=== PATIENT | female | born 1970 | race Caucasian/White ===

== ENCOUNTER → 2017-09-18 | Outpatient (CLI) | payer OTHER | LOC: MAMMO 13:41 | DX: N63.20 Unspecified lump in the left breast, unspecified quadrant (principal); N64.4 Mastodynia ==

== ENCOUNTER → 2019-03-23 | Outpatient (CLI) | payer OTHER | LOC: MAMMO 09:29 | DX: Z12.31 Encounter for screening mammogram for malignant neoplasm of breast (principal) ==

== ENCOUNTER → 2020-04-03 | Outpatient (CLI) | payer OTHER | LOC: LAB 12:16 | DX: Z20.828 Contact with and (suspected) exposure to other viral communicable diseases (principal) ==

== ENCOUNTER → 2020-04-28 | Outpatient (CLI) | payer OTHER ==
[2020-04-28 11:10] LABS: HEMATOCRIT 45.4 % (37.0-47.0); HEMOGLOBIN 15.1 g/dL (12.5-16.0); MEAN PLATELET VOLUME 9.9 fl (7.4-10.4); RED BLOOD COUNT 5.28 M/mm3 (4.10-5.30); RED CELL DISTRIBUTION WIDTH 13.5 % (11.5-14.5); WHITE BLOOD COUNT 5.8 K/mm3 (4.8-10.8)
[2020-04-28 11:24] LABS: ALBUMIN 4.4 g/dL (3.5-5.0)
[2020-04-28 11:25] LABS: POTASSIUM 4.2 mmol/L (3.5-5.1)
[2020-04-28 11:26] LABS: CALCIUM 9.1 mg/dL (8.3-10.5)
[2020-04-28 11:27] LABS: TOTAL PROTEIN 7.4 g/dL (6.4-8.3)
[2020-04-28 11:29] LABS: TOTAL BILIRUBIN 0.3 mg/dL (0.2-1.2)
== END ==
LOC: RAD 10:52
PROVIDERS: Family Medicine
DX: E04.1 Nontoxic single thyroid nodule (principal); R63.5 Abnormal weight gain; M54.2 Cervicalgia

== ENCOUNTER → 2020-05-22 | Outpatient (CLI) | payer OTHER | LOC: VAS 15:23 | DX: I08.0 Rheumatic disorders of both mitral and aortic valves (principal); I77.810 Thoracic aortic ectasia; Z82.49 Family history of ischemic heart disease and other diseases of the circulatory system ==

== ENCOUNTER → 2020-07-03 | Outpatient (CLI) | payer OTHER ==
[2020-07-03 11:19] LABS: EOS # 0.2 (0.04-0.40); EOS % 1.9 % (1.0-5.0); HEMATOCRIT 43.3 % (37.0-47.0); HEMOGLOBIN 14.5 g/dL (12.5-16.0); LYMPH# 1.9 (1.50-4.00); MEAN CELL VOLUME 86 fl (78-100); MEAN CORPUSCULAR HEMOGLOBIN 29 pg (27-31); MEAN CORPUSCULAR HGB CONC 34 g/dL (33-37); MEAN PLATELET VOLUME 10.3 fl (7.4-10.4); MONO # 0.5 (0.20-0.80); NEU # 5.1 (1.40-6.50); PLATELET COUNT 196 K/mm3 (130-400); RED BLOOD COUNT 5.03 M/mm3 (4.10-5.30); RED CELL DISTRIBUTION WIDTH 14.1 % (11.5-14.5); WHITE BLOOD COUNT 7.8 K/mm3 (4.8-10.8)
== END ==
LOC: LAB 10:35
PROVIDERS: Family Medicine
DX: K11.5 Sialolithiasis (principal); I71.2 Thoracic aortic aneurysm, without rupture; Q23.1 Congenital insufficiency of aortic valve; K13.70 Unspecified lesions of oral mucosa
CPT/HCPCS: Q9967

== ENCOUNTER → 2020-08-14 | Outpatient (CLI) | payer OTHER ==
[2020-08-14 12:05] LABS: EOS # 0.1 (0.04-0.40); EOS % 1.6 % (1.0-5.0); HEMATOCRIT 43.9 % (37.0-47.0); HEMOGLOBIN 14.6 g/dL (12.5-16.0); MEAN CELL VOLUME 86 fl (78-100); MEAN CORPUSCULAR HEMOGLOBIN 29 pg (27-31); MEAN CORPUSCULAR HGB CONC 33 g/dL (33-37); MEAN PLATELET VOLUME 9.8 fl (7.4-10.4); MONO # 0.4 (0.20-0.80); NEU # 3.6 (1.40-6.50); PLATELET COUNT 238 K/mm3 (130-400); RED BLOOD COUNT 5.11 M/mm3 (4.10-5.30); RED CELL DISTRIBUTION WIDTH 13.3 % (11.5-14.5); WHITE BLOOD COUNT 6.2 K/mm3 (4.8-10.8)
[2020-08-14 12:21] LABS: POTASSIUM 4.2 mmol/L (3.5-5.1)
[2020-08-14 12:22] LABS: CALCIUM 9.1 mg/dL (8.3-10.5)
== END ==
LOC: LAB 11:55
DX: Z01.810 Encounter for preprocedural cardiovascular examination (principal); I35.0 Nonrheumatic aortic (valve) stenosis

== ENCOUNTER 2020-11-01 09:45 | Inpatient (IN) | payer OTHER ==
[~2020-11-01] VITALS: Ht 170.2 cm; Wt 62.8 kg
[2020-11-01] MEDS ORDERED: WARFARIN SODIUM3 MG PO ×2 (11:31)
[2020-11-01] MEDS ORDERED: AMIODARONE HCL400 MG PO (11:31)
[2020-11-01] MEDS ORDERED: GOOD NEIGHBOR500 M2 PO (11:31)
[2020-11-01] MEDS ORDERED: ASPIRIN E.C. 8181 MG PO (11:32)
[2020-11-01] MEDS ORDERED: ROXICODONE5 M1 PO (11:32)
[2020-11-01 14:33] VITALS: BP 96/73
[2020-11-01 14:34] VITALS: BP 96/73
[2020-11-01 15:52] LABS: RED BLOOD COUNT 3.76 M/mm3 (4.10-5.30); WHITE BLOOD COUNT 10.8 K/mm3 (4.8-10.8)
[2020-11-01 15:53] LABS: HEMATOCRIT 32.9 % (37.0-47.0); HEMOGLOBIN 10.3 g/dL (12.5-16.0); MEAN PLATELET VOLUME 9.6 fl (7.4-10.4); RED CELL DISTRIBUTION WIDTH 13.2 % (11.5-14.5)
[2020-11-01 15:54] LABS: ALBUMIN 4.2 g/dL (3.5-5.0); CALCIUM 9.2 mg/dL (8.3-10.5); POTASSIUM 4.1 mmol/L (3.5-5.1); TOTAL BILIRUBIN 0.3 mg/dL (0.2-1.2); TOTAL PROTEIN 7.2 g/dL (6.4-8.3)
[2020-11-01 15:55] LABS: TROPONIN-I 0.1 ng/mL (<0.030)
[2020-11-01 16:04] VITALS: BP 96/73
[2020-11-01 17:47] VITALS: BP 110/69
[2020-11-01 22:00] VITALS: BP 105/73
[2020-11-02] VITALS (17 sets, daily range): BP systolic 105–116; BP diastolic 66–80
[2020-11-02 08:41] LABS: HEMATOCRIT 27.1 % (37.0-47.0); HEMOGLOBIN 8.4 g/dL (12.5-16.0); MEAN CELL VOLUME 89 fl (78-100); MEAN CORPUSCULAR HEMOGLOBIN 28 pg (27-31); MEAN CORPUSCULAR HGB CONC 31 g/dL (33-37); MEAN PLATELET VOLUME 9.6 fl (7.4-10.4); RED BLOOD COUNT 3.05 M/mm3 (4.10-5.30); RED CELL DISTRIBUTION WIDTH 13.2 % (11.5-14.5); WHITE BLOOD COUNT 12.3 K/mm3 (4.8-10.8)
[2020-11-02 08:57] LABS: POTASSIUM 4.6 mmol/L (3.5-5.1)
[2020-11-02 08:58] LABS: CALCIUM 9.3 mg/dL (8.3-10.5); PROTHROMBIN TIME 23.1 SECONDS (9.0-12.0)
[2020-11-02 09:04] LABS: PLATELET COUNT 560 K/mm3 (130-400)
[2020-11-02 09:11] LABS: TROPONIN-I 0.09 ng/mL (<0.030)
[2020-11-02 09:30] LABS: LYMPHOCYTE 13 % (20-51); MONOCYTE 6 % (3-10); NEUTROPHILS 80 % (42-75)
[2020-11-02 09:31] LABS: POLYCHROMASIA 1+
[2020-11-02 10:42] LABS: PROTHROMBIN TIME 25.8 SECONDS (9.0-12.0)
[2020-11-02 12:17] LABS: URINE APPEARANCE CLEAR; URINE BILIRUBIN NEGATIVE (NEGATIVE); URINE BLOOD NEGATIVE (NEGATIVE); URINE COLOR YELLOW; URINE GLUCOSE NEGATIVE (NEGATIVE); URINE KETONE NEGATIVE (NEGATIVE); URINE LEUKOCYTE ESTERASE NEGATIVE (NEGATIVE); URINE NITRATE NEGATIVE (NEGATIVE); URINE PROTEIN(semi-quant) TRACE mg/dL (NEGATIVE); URINE UROBILINOGEN NORMAL (NORMAL)
[2020-11-02 12:18] LABS: URINE MUCUS PRESENT (NOT PRESENT)
[2020-11-02 12:20] LABS: PROTHROMBIN TIME 101.9 SECONDS (9.0-12.0)
[2020-11-03] VITALS (9 sets, daily range): BP systolic 99–115; BP diastolic 64–78
[2020-11-03 08:54] LABS: HEMATOCRIT 26.3 % (37.0-47.0); HEMOGLOBIN 8.3 g/dL (12.5-16.0); MEAN CELL VOLUME 88 fl (78-100); MEAN CORPUSCULAR HEMOGLOBIN 28 pg (27-31); MEAN CORPUSCULAR HGB CONC 32 g/dL (33-37); MEAN PLATELET VOLUME 9.8 fl (7.4-10.4); RED BLOOD COUNT 2.99 M/mm3 (4.10-5.30); RED CELL DISTRIBUTION WIDTH 13.1 % (11.5-14.5); WHITE BLOOD COUNT 11.5 K/mm3 (4.8-10.8)
[2020-11-03 09:09] LABS: PLATELET COUNT 573 K/mm3 (130-400)
[2020-11-03 09:12] LABS: LYMPHOCYTE 20 % (20-51); MONOCYTE 5 % (3-10); NEUTROPHILS 75 % (42-75)
[2020-11-03 09:13] LABS: HYPOCHROMIA 1+; POLYCHROMASIA 1+
[2020-11-03 09:51] LABS: PROTHROMBIN TIME 71.3 SECONDS (9.0-12.0)
[2020-11-03 09:59] LABS: POTASSIUM 4.6 mmol/L (3.5-5.1)
[2020-11-03 10:02] LABS: TOTAL PROTEIN 6.9 g/dL (6.4-8.3)
[2020-11-03 10:03] LABS: TOTAL BILIRUBIN 0.4 mg/dL (0.2-1.2)
[2020-11-03 17:59] LABS: PROTHROMBIN TIME 34.7 SECONDS (9.0-12.0)
[2020-11-04 06:04] VITALS: BP 109/68
[2020-11-04 07:00] LABS: HEMATOCRIT 25.3 % (37.0-47.0); MEAN CELL VOLUME 88 fl (78-100); MEAN CORPUSCULAR HEMOGLOBIN 27 pg (27-31); MEAN CORPUSCULAR HGB CONC 31 g/dL (33-37); MEAN PLATELET VOLUME 10.1 fl (7.4-10.4); RED BLOOD COUNT 2.88 M/mm3 (4.10-5.30); RED CELL DISTRIBUTION WIDTH 13.4 % (11.5-14.5); WHITE BLOOD COUNT 14.5 K/mm3 (4.8-10.8)
[2020-11-04 08:01] LABS: HEMOGLOBIN 7.8 g/dL (12.5-16.0); PLATELET COUNT 527 K/mm3 (130-400)
[2020-11-04 08:03] LABS: PROTHROMBIN TIME 61.4 SECONDS (9.0-12.0)
[2020-11-04 08:04] LABS: LYMPHOCYTE 11 % (20-51); MONOCYTE 4 % (3-10); NEUTROPHILS 85 % (42-75)
[2020-11-04 08:11] LABS: POTASSIUM 4.5 mmol/L (3.5-5.1)
[2020-11-04 08:12] LABS: CALCIUM 8.9 mg/dL (8.3-10.5)
[2020-11-04 08:14] LABS: TOTAL PROTEIN 6.8 g/dL (6.4-8.3)
[2020-11-04 08:15] LABS: TOTAL BILIRUBIN 0.3 mg/dL (0.2-1.2)
[2020-11-04 09:49] VITALS: BP 118/80
[2020-11-04 14:20] VITALS: BP 97/68
[2020-11-04 17:22] VITALS: BP 97/68
[2020-11-04 18:06] LABS: HEMATOCRIT 24.9 % (37.0-47.0)
[2020-11-04 18:59] LABS: PROTHROMBIN TIME 80.2 SECONDS (9.0-12.0)
[2020-11-04 19:00] LABS: HEMOGLOBIN 7.8 g/dL (12.5-16.0)
[2020-11-04 20:12] LABS: ALBUMIN 4.1 g/dL (3.5-5.0); POTASSIUM 4.4 mmol/L (3.5-5.1)
[2020-11-04 20:13] LABS: CALCIUM 8.7 mg/dL (8.3-10.5)
[2020-11-04 20:15] LABS: TOTAL PROTEIN 6.5 g/dL (6.4-8.3)
[2020-11-04 20:16] LABS: TOTAL BILIRUBIN 0.4 mg/dL (0.2-1.2)
[2020-11-04 20:20] LABS: DIRECT BILIRUBIN 0.2 mg/dL (0.0-0.5)
[2020-11-04] MEDS ORDERED: AMIODARONE200 MG PO (20:21)
[2020-11-04] MEDS ORDERED: DOCUSATE SOD100 MG PO (20:21)
[2020-11-04] MEDS ORDERED: ZOFRAN ODT4 MG PO (20:22)
[2020-11-04] MEDS ORDERED: HEALTHYLAX17 GM/Dose PO (20:22)
[2020-11-04] MEDS ORDERED: REGLAN 10M10 MG/2 ML IV (20:22)
[2020-11-04] MEDS ORDERED: PANTOPRAZOLE SO40 MG PO (20:23)
== END 2020-11-04 21:59 | disposition short-term general hospital (02) | DRG 948 ==
LOC: ED 10:20 → MED/SURG 13:48 → ED 11-03 13:14 → MED/SURG 11-03 13:14
PROVIDERS: Family Medicine; Physician Assistant; ADMIT Nurse Practitioner Family
DX: R79.1 Abnormal coagulation profile (principal); E87.1 Hypo-osmolality and hyponatremia; I31.3 Pericardial effusion (noninflammatory); D72.829 Elevated white blood cell count, unspecified; F41.9 Anxiety disorder, unspecified; D64.9 Anemia, unspecified; F32.9 Major depressive disorder, single episode, unspecified; K59.00 Constipation, unspecified; Z79.01 Long term (current) use of anticoagulants; Z79.82 Long term (current) use of aspirin; Z79.891 Long term (current) use of opiate analgesic; Z95.2 Presence of prosthetic heart valve; Z87.891 Personal history of nicotine dependence
CPT/HCPCS: G0378; J1940; J2060; J2270; J2405; J2550; J2765; J3430; Q9967

== ENCOUNTER → 2020-11-20 | Outpatient (CLI) | payer OTHER ==
[2020-11-04 17:22] VITALS: BP 97/68
[~2020-11-20] MED LIST: AMIODARONE HCL400 MG PO; AMIODARONE200 MG PO; ASPIRIN E.C. 8181 MG PO; DOCUSATE SOD100 MG PO; GOOD NEIGHBOR500 M2 PO; HEALTHYLAX17 GM/Dose PO; PANTOPRAZOLE SO40 MG PO; REGLAN 10M10 MG/2 ML IV; ROXICODONE5 M1 PO; WARFARIN SODIUM3 MG PO; ZOFRAN ODT4 MG PO
== END ==
LOC: RAD 16:12
DX: I08.1 Rheumatic disorders of both mitral and tricuspid valves (principal); Z95.2 Presence of prosthetic heart valve

== ENCOUNTER → 2020-11-29 | Outpatient (CLI) | payer OTHER ==
[2020-11-04 17:22] VITALS: BP 97/68
== END ==
LOC: RAD 07:49
DX: S36.229A Contusion of unspecified part of pancreas, initial encounter (principal)

== ENCOUNTER → 2020-12-14 | Outpatient (CLI) | payer OTHER | LOC: RAD 15:45 → VAS 16:12 | DX: I31.3 Pericardial effusion (noninflammatory) (principal) ==

== ENCOUNTER 2021-02-06 14:00 | Outpatient (RCR) | payer OTHER | END 2021-03-05 | disposition home or self-care (01) | LOC: CARDREHAB | DX: Z48.812 Encounter for surgical aftercare following surgery on the circulatory system (principal); Z95.2 Presence of prosthetic heart valve ==

== ENCOUNTER 2021-03-22 14:00 | Outpatient (RCR) | payer OTHER | END 2021-06-20 | disposition home or self-care (01) | LOC: CARDREHAB | DX: Z48.812 Encounter for surgical aftercare following surgery on the circulatory system (principal); Z95.2 Presence of prosthetic heart valve ==

== ENCOUNTER 2021-06-06 13:07 | Outpatient (RCR) | payer OTHER | END 2021-09-04 | disposition still patient (30) | LOC: OT | DX: M25.522 Pain in left elbow (principal) ==

== ENCOUNTER → 2021-09-04 | Outpatient (CLI) | payer OTHER | LOC: MAMMO 07:50 | DX: Z12.31 Encounter for screening mammogram for malignant neoplasm of breast (principal) ==

== ENCOUNTER → 2021-11-13 | Outpatient (CLI) | payer OTHER ==
[2021-11-13 08:21] LABS: HEMOGLOBIN 14.4 g/dL (12.5-16.0); RED BLOOD COUNT 5.12 M/mm3 (4.10-5.30); RED CELL DISTRIBUTION WIDTH 13.5 % (11.5-14.5); WHITE BLOOD COUNT 5.8 K/mm3 (4.8-10.8)
[2021-11-13 08:52] LABS: ALBUMIN 4.2 g/dL (3.5-5.0); POTASSIUM 3.9 mmol/L (3.5-5.1)
[2021-11-13 08:53] LABS: CALCIUM 9.2 mg/dL (8.3-10.5)
[2021-11-13 08:56] LABS: TOTAL BILIRUBIN 0.5 mg/dL (0.2-1.2)
== END ==
LOC: LAB 07:50
PROVIDERS: Family Medicine
DX: E04.1 Nontoxic single thyroid nodule (principal); R60.9 Edema, unspecified; R73.9 Hyperglycemia, unspecified; Z86.2 Personal history of diseases of the blood and blood-forming organs and certain disorders involving the immune mechanism

== ENCOUNTER → 2022-01-03 | Outpatient (CLI) | payer OTHER | LOC: AMSURD 17:23 | DX: R63.5 Abnormal weight gain (principal); Z68.27 Body mass index [BMI] 27.0-27.9, adult ==

== ENCOUNTER → 2022-03-25 | Outpatient (CLI) | payer OTHER ==
[2022-03-25 11:37] LABS: BASO # 0.05 K/mm3 (0.02-0.10); EOS # 0.14 K/mm3 (0.04-0.40); EOS % 1.7 % (1.0-5.0); HEMATOCRIT 44.8 % (37.0-47.0); LYMPH# 2.14 K/mm3 (1.50-4.00); MEAN CELL VOLUME 85 fl (78-100); MEAN CORPUSCULAR HEMOGLOBIN 28 pg (27-31); MEAN CORPUSCULAR HGB CONC 34 g/dL (33-37); MEAN PLATELET VOLUME 10.1 fl (7.4-10.4); MONO # 0.49 K/mm3 (0.20-0.80); NEU # 5.32 K/mm3 (1.40-6.50); PLATELET COUNT 265 K/mm3 (130-400); RED BLOOD COUNT 5.29 M/mm3 (4.10-5.30); RED CELL DISTRIBUTION WIDTH 13.2 % (11.5-14.5); WHITE BLOOD COUNT 8.2 K/mm3 (4.8-10.8)
[2022-03-25 11:54] LABS: ALBUMIN 4.4 g/dL (3.5-5.0); POTASSIUM 3.2 mmol/L (3.5-5.1)
[2022-03-25 11:56] LABS: TOTAL PROTEIN 7.3 g/dL (6.4-8.3)
[2022-03-25 11:58] LABS: TOTAL BILIRUBIN 0.6 mg/dL (0.2-1.2)
[2022-03-25 12:00] LABS: PROTHROMBIN TIME 36.3 SECONDS (9.0-12.0)
== END ==
LOC: LAB 11:22
PROVIDERS: Nurse Practitioner Family
DX: M79.604 Pain in right leg (principal); R58 Hemorrhage, not elsewhere classified

== ENCOUNTER → 2022-03-26 | Outpatient (CLI) | payer OTHER | LOC: VAS 11:24 → RAD 11:45 | DX: M79.604 Pain in right leg (principal) ==

== ENCOUNTER → 2022-11-08 | Outpatient (CLI) | payer OTHER | LOC: RAD 07:00 | DX: R10.11 Right upper quadrant pain (principal) ==

== ENCOUNTER → 2023-01-02 | Outpatient (CLI) | payer OTHER | LOC: RAD 09:55 | DX: N60.02 Solitary cyst of left breast (principal) ==

== ENCOUNTER → 2023-07-30 | Outpatient (CLI) | payer OTHER | LOC: LAB 09:43 | DX: N30.01 Acute cystitis with hematuria (principal) ==

== ENCOUNTER → 2024-04-13 | Outpatient (CLI) | payer OTHER | LOC: MAMMO 11:17 | DX: Z12.31 Encounter for screening mammogram for malignant neoplasm of breast (principal) ==

== ENCOUNTER → 2024-04-13 | Outpatient (CLI) | payer OTHER | LOC: LAB 09:54 | DX: Z13.1 Encounter for screening for diabetes mellitus (principal); E78.2 Mixed hyperlipidemia ==

== ENCOUNTER → 2024-05-04 | Outpatient (CLI) | payer OTHER | LOC: RAD 08:39 | DX: E04.2 Nontoxic multinodular goiter (principal) ==